=== PATIENT | male | born 1935 ===

== ENCOUNTER 2018-02-02 16:29 | Inpatient (IN) | payer MEDICARE ==
[~2018-02-02] VITALS: Ht 195.6 cm; Wt 88.0 kg
[~2018-02-02 16:29] MED LIST: DIAZ5 PO; ENAL10 PO; METO100 PO; METO50 PO; OMEP20ER PO; OXYACE5T PO; PANT40 PO; TRAZ50 PO; ZOLP10 PO
[2018-02-02 18:35] LABS: BASOPHILS ABSOLUTE AUTO 0.02 K/mm3 (0.00-0.23); BASOPHILS PERCENT AUTO 0 % (0-2); EOSINOPHILS ABSOLUTE AUTO 0.12 K/mm3 (0.00-0.68); EOSINOPHILS PERCENT AUTO 2 % (0-6); Hematocrit 40.1 % (37.0-53.0); Hemoglobin 13.5 g/dL (13.5-17.5); IMMATURE GRAN ABSOLUTE AUTO 0.02 K/mm3 (0.00-0.10); IMMATURE GRAN PERCENT AUTO 0 % (0-1); LYMPHOCYTES ABSOLUTE AUTO 1.24 K/mm3 (0.84-5.20); LYMPHOCYTES PERCENT AUTO 16 % (21-46); MONOCYTES ABSOLUTE AUTO 0.85 K/mm3 (0.16-1.47); MONOCYTES PERCENT AUTO 11 % (4-13); Mean Corpuscular HGB 34.2 pg (26.0-34.0); Mean Corpuscular HGB Conc 33.7 g/dL (31.5-36.5); Mean Corpuscular Volume 102 fL (80-100); Mean Platelet Volume 10.1 fL (9.1-12.4); NEUTROPHILS ABSOLUTE AUTO 5.47 K/mm3 (1.96-9.15); NEUTROPHILS PERCENT AUTO 71 % (41-73); Platelet Count 179 K/mm3 (150-400); RDW Coefficient Variation 11.4 % (11.7-14.2); RDW Standard Deviation 42.8 fL (35.1-46.3); Red Blood Cell Count 3.95 M/mm3 (4.30-5.90); White Blood Cell Count 7.72 K/mm3 (4.00-11.30)
[2018-02-02] MEDS ORDERED: LEVOCETIRIZINE D5 MG PO (18:37)
[2018-02-02] MEDS ORDERED: Lovastatin10 MG PO (18:38)
[2018-02-02] MEDS ORDERED: Citalopram HBr40 MG PO (18:38)
[2018-02-02] MEDS ORDERED: PANT40 PO (18:39)
[2018-02-02] MEDS ORDERED: LISI20 PO (18:39)
[2018-02-02] MEDS ORDERED: LORA1 PO (18:39)
[2018-02-02 18:52] LABS: International Normalized Ratio 0.97
[2018-02-02 18:53] LABS: Albumin/Globulin Ratio 1.1 (0.8-1.8); Bilirubin, Total 0.4 mg/dL (0.1-1.0); Bun/Creatinine Ratio 9.3 (12.0-20.0); Calcium, Blood 8.9 mg/dL (8.5-10.1); Creatinine, Blood 1.51 mg/dL (0.60-1.20); Globulin, Blood 3.5 g/dL (2.2-4.0); Potassium, Blood 4.6 mmol/L (3.5-5.5); Total Protein, Blood 7.5 g/dL (6.4-8.2)
[2018-02-03 05:48] LABS: Hematocrit 37.8 % (37.0-53.0); Hemoglobin 12.7 g/dL (13.5-17.5); Mean Corpuscular HGB 33.8 pg (26.0-34.0); Mean Corpuscular HGB Conc 33.6 g/dL (31.5-36.5); Mean Corpuscular Volume 101 fL (80-100); Mean Platelet Volume 10.4 fL (9.1-12.4); Platelet Count 170 K/mm3 (150-400); RDW Coefficient Variation 11.6 % (11.7-14.2); RDW Standard Deviation 42.5 fL (35.1-46.3); Red Blood Cell Count 3.76 M/mm3 (4.30-5.90); White Blood Cell Count 6.85 K/mm3 (4.00-11.30)
[2018-02-03 06:06] LABS: Bun/Creatinine Ratio 8.6 (12.0-20.0); Calcium, Blood 8.7 mg/dL (8.5-10.1); Creatinine, Blood 1.51 mg/dL (0.60-1.20); Potassium, Blood 4.1 mmol/L (3.5-5.5)
[2018-02-03] MEDS ORDERED: ACET325 PO (17:58)
[2018-02-03] MEDS ORDERED: CEPACOL SORE T1 EACH MM (17:58)
[2018-02-03] MEDS ORDERED: METO25 PO (17:59)
[2018-02-03] MEDS ORDERED: Norco 5-325 Ta1 EACH PO (18:00)
[2018-02-03] MEDS ORDERED: AMOX875 PO (18:02)
[2018-02-03] MEDS ORDERED: ONDA4ODT MM (18:03)
== END 2018-02-03 19:00 | disposition home or self-care (01) | DRG 581 ==
LOC: ER 16:29 → SURS 18:34
PROVIDERS: Family Medicine; Orthopaedic Surgery; Physician Assistant
PROC: 0JDJ0ZZ Extraction of Right Hand Subcutaneous Tissue and Fascia, Open Approach (ICD-10-PCS; 2018-02-03)
PROC: 0HDFXZZ Extraction of Right Hand Skin, External Approach (ICD-10-PCS; 2018-02-03)
PROC: 0X6S0Z3 Detachment at Right Ring Finger, Low, Open Approach (ICD-10-PCS; principal; 2018-02-03 12:30)
PROC: 0PDT0ZZ Extraction of Right Finger Phalanx, Open Approach (ICD-10-PCS; 2018-02-03 12:30)
DX: S61.214A Laceration without foreign body of right ring finger without damage to nail, initial encounter (principal); S61.212A Laceration without foreign body of right middle finger without damage to nail, initial encounter; K21.9 Gastro-esophageal reflux disease without esophagitis; E78.5 Hyperlipidemia, unspecified; H91.10 Presbycusis, unspecified ear; I12.9 Hypertensive chronic kidney disease with stage 1 through stage 4 chronic kidney disease, or unspecified chronic kidney disease; N18.3 Chronic kidney disease, stage 3 (moderate); Y92.009 Unspecified place in unspecified non-institutional (private) residence as the place of occurrence of the external cause; W29.8XXA Contact with other powered hand tools and household machinery, initial encounter; Y93.9 Activity, unspecified; Y99.8 Other external cause status
CPT/HCPCS: 12002; 36415; 71045; 73130; 80048; 80053; 85025; 85027; 85610; 86850; 86900; 86901; 90471; 90714; 93005; 93010; 96365; 96366; 99285-25; J0330; J0360; J0690; J1100; J1644; J2405; J3010; J7030; J7120

== ENCOUNTER 2020-11-19 13:50 | Observation (INO) | payer MEDICARE ==
[~2020-11-19] VITALS: Ht 188 cm; Wt 77.7 kg
[~2020-11-19 13:50] MED LIST changes: +ACET325 PO; +AMOX875 PO; +CEPACOL SORE T1 EACH MM; +Citalopram HBr40 MG PO; +LEVOCETIRIZINE D5 MG PO; +LISI20 PO; +LORA1 PO; +Lovastatin10 MG PO; +METO25 PO; +Norco 5-325 Ta1 EACH PO; +ONDA4ODT MM
[2020-11-19] MEDS ORDERED: RISP1 PO (14:24)
[2020-11-19] MEDS ORDERED: TAMS.4ER PO (14:24)
[2020-11-19] MEDS ORDERED: ANTIFUNGAL30 GM TOP (14:24)
[2020-11-19] MEDS ORDERED: Acerola C500 MG PO (14:25)
[2020-11-19] MEDS ORDERED: Diflucan100 MG PO (14:25)
[2020-11-19] MEDS ORDERED: Aspir 8181 MG PO (14:25)
[2020-11-19] MEDS ORDERED: Lovastatin20 MG PO (14:26)
[2020-11-19] MEDS ORDERED: Vitamin B-121000 MCG PO (14:26)
[2020-11-19 15:36] LABS: BASOPHILS ABSOLUTE AUTO 0.03 K/mm3 (0.00-0.23); BASOPHILS PERCENT AUTO 0 % (0-2); EOSINOPHILS PERCENT AUTO 1 % (0-6); Hematocrit 39.5 % (37.0-53.0); Hemoglobin 13.1 g/dL (13.5-17.5); IMMATURE GRAN ABSOLUTE AUTO 0.04 K/mm3 (0.00-0.10); IMMATURE GRAN PERCENT AUTO 0 % (0-1); LYMPHOCYTES PERCENT AUTO 12 % (21-46); MONOCYTES ABSOLUTE AUTO 1.33 K/mm3 (0.16-1.47); MONOCYTES PERCENT AUTO 15 % (4-13); Mean Corpuscular HGB 32.4 pg (26.0-34.0); Mean Corpuscular HGB Conc 33.2 g/dL (31.5-36.5); Mean Corpuscular Volume 98 fL (80-100); Mean Platelet Volume 10.2 fL (9.1-12.4); NEUTROPHILS ABSOLUTE AUTO 6.47 K/mm3 (1.96-9.15); NEUTROPHILS PERCENT AUTO 71 % (41-73); Platelet Count 265 K/mm3 (150-400); RDW Coefficient Variation 11.5 % (11.7-14.2); RDW Standard Deviation 41.8 fL (35.1-46.3); Red Blood Cell Count 4.04 M/mm3 (4.30-5.90); White Blood Cell Count 9.07 K/mm3 (4.00-11.30)
[2020-11-19 15:57] LABS: Albumin, Blood 3.3 g/dL (3.4-5.0); Albumin/Globulin Ratio 0.8 (0.8-1.8); Bilirubin, Total 0.6 mg/dL (0.1-1.0); Bun/Creatinine Ratio 24.6 (12.0-20.0); Calcium, Blood 9.9 mg/dL (8.5-10.1); Creatinine, Blood 1.83 mg/dL (0.60-1.20); Globulin, Blood 4.4 g/dL (2.2-4.0); Potassium, Blood 4.6 mmol/L (3.5-5.5); Total Protein, Blood 7.7 g/dL (6.4-8.2)
[2020-11-19 16:04] LABS: Thyroid Stimulating Hormone 1.17 uIU/mL (0.360-4.800)
[2020-11-19 16:10] LABS: Source, Urine Catheter
[2020-11-19 16:16] LABS: Appearance, Urine Clear (Clear); Bilirubin, Urine Neg (Neg); Blood, Urine 3+ (Neg); Color, Urine Yellow (P-Yellow); Glucose Qualitative, Urine Neg (Neg); Ketones, Urine 2+ (Neg); Leukocyte Esterase, Urine Neg (Neg); Nitrite, Urine Neg (Neg); Protein, Urine 2+ (Neg); Urobilinogen, Urine NORM (Normal)
[2020-11-19 16:25] LABS: Amorphous Light (0-Heavy); Bacteria Mod /hpf; Mucus Light (0-Heavy); Red Blood Cells, Urine 0-2 /hpf (0-2); Squamous Epithelial Cells Rare /hpf (Few); White Blood Cells, Urine 0-2 /hpf (0-5)
--- NOTE | 2020-11-20 04:20 | NUR ---
SHIFT SUMMARY PT ER ADMIT THIS SHIFT FOR INCREASED WEAKNESS. PT A/OX1 WITH PMH OF DEMENTIA AND PARKINSON'S. PT SPEAKS MINIMALLY WITH STAFF AND OCCASIONALLY JUST STARES WHEN ASKED A QUESTION AND OTHER TIMES HE WILL ANSWER AND COMMUNICATE. PT IS A/O TO SELF AND FAMILY ONLY, PT ASKED A FEW TIMES WHERE HIS WAS. PT HAS SLEPT MOST OF THE NIGHT AND HAS NOT ATTEMPTED TO GET OOB, BED ALARM IN PLACE FOR SAFETY. PT INCONTINENT OF URINE. PT ABLE TO MOVE HIS ARMS AND LEGS BUT IS VERY CONTROLLED IN HIS MOVEMENTS. PT TAKES HIS MEDS WHOLE IN APPLESAUCE AND TOLERATES WELL. ASPIRATION PRECAUTIONS MAINTAINED. NO COMPAINTS OF PAIN. IVF INFUSING ORDERED. VITALS ARE STABLE. BED IN LOWEST POSITION, CALL LIGHT WITHIN REACH.
--- NOTE | 2020-11-20 17:32 | NUR ---
SHIFT SUMMARY PT ADMITTED FOR INCREASED WEAKNESS AND AN INCREASE IN HIS PARKINSON'S SYMPTOMS. THE PT IS VERY CONFUSED AND ALER TO SELF AND FAMILY ONLY. HE TAKES HIS PILLS ONE AT A TIME IN APPLE SAUCE. HE IS INCONT. AND A MAX ASSIST TO GET UP. BED ALARM IS ON. IS PRIMARY CAREGIVER AND THEY ARE MOVING MORE TOWARDS COMFORT CARE AND HOME WITH HOSPICE. VSS. RESTING COMFORTABLY IN BED WITH HIS CALL LIGHT IN REACH.
[2020-11-21 05:14] LABS: Bun/Creatinine Ratio 21.5 (12.0-20.0); Calcium, Blood 8.8 mg/dL (8.5-10.1); Creatinine, Blood 1.35 mg/dL (0.60-1.20)
--- NOTE | 2020-11-21 16:41 | NUR ---
SHIFT SUMMARY: NO ACUTE EVENTS. ALERT TO SELF AND FAMILY, VERY MAKAH. EXTREMITIES RIGID AND TREMULOUS. TWO PERSON MAX ASSIST WITH GAIT BELT TO [facility] [place], IS VERY HEAVY. HAD FAMILY MEETING WITH PALLIATIVE CARE AND PROVIDER, WILL GO HOME ON HOSPICE, PROBABLY TOMORROW. APPETITE IS POOR, TAKING VERY LITTLE PO. WORKING WITH PT/OT.
--- NOTE | 2020-11-21 18:25 | NUR ---
Clarita Visits this Afternoon Family meeting this afternoon with this RN, Dr Reinoso, and many family members including spouse, grandchildren, brother, and other family members. Goals of care discussed including options for SNF, Home Health, and Hospice. Dr Reinoso answers questions and discusses prognoses. Spouse reports Pt has been showing significant decline over the last couple of months. Pt requires assistance with transfers, standbye assist with ambulation and FWW, bathing, dressing, and has been experiencing incontinence of urine. Spouse Beba reports Pt has lost 20 pounds in the last 3 months. Pt weighed 190 pounds 3 months ago and most recent PCP visit Pt weighs 170 pounds. Pt also is experiencing difficulty swallowing. Beba reports having to puree Pt's food now. Pt spends majority of his day in chair or bed. Beba also reports Pt has not had meaningful conversation in several months as well. This RN educated on hospice philosophy. After lengthy visit family has elected to pursue hospice. Hospice agencies discussed with family choosing [facility]. Spoke with Caremanager Jericho and relayed family's choice of hospice agencies. PPS 40% FAST 7C ADLs 5/6 Palliative Care will remain available.
--- NOTE | 2020-11-22 04:30 | NUR ---
Pleasantly confused dementia PT with advanced Parkinson's disease with DTR atbedside & supportive. PT is very thin and tall & reported to be up on day shift with 2 max unsafe to ambulate. PT with minimal oral intake needs feeding. Offered icecream & soft foods with meds. Aspiration precautions no cough with oral intake. Multiple swallows to clear. Planning to DC home on Hospice as soon as arranged. Medicated for anxiety at HS with ativan 0.5 mg with helpful effect. Fall precautions poor safety awareness.
--- NOTE | 2020-11-22 13:28 | NUR ---
PT DISCHARGE TO HOME WITH HOSPICE. IV DC'D. GIVEN PACKET AND INSTRUCTIONS. WAS ALSO GIVEN THE DISCHARGE PAPER AND INSTRUCTED TO FOLLOW UP TO THE PT PCP WITHIN 72 HRS. TRIED TO CALL THE DR FOR FU APPOINMENT BUT THEY WILL CALL THE PT BACK FOR APPOINTMENT. DENIES ANY CONCERNS/
== END 2020-11-22 13:15 | disposition hospice, home (50) ==
LOC: ER 13:50 → ERHOLD 13:51 → MEDS 13:51
PROVIDERS: Emergency Medicine; Internal Medicine; ADMIT Internal Medicine
DX: G20 Parkinson's disease (principal); F02.80 Dementia in other diseases classified elsewhere, unspecified severity, without behavioral disturbance, psychotic disturbance, mood disturbance, and anxiety; N17.9 Acute kidney failure, unspecified; E86.0 Dehydration; E87.1 Hypo-osmolality and hyponatremia; I12.9 Hypertensive chronic kidney disease with stage 1 through stage 4 chronic kidney disease, or unspecified chronic kidney disease; N18.30 Chronic kidney disease, stage 3 unspecified; K21.9 Gastro-esophageal reflux disease without esophagitis; E78.5 Hyperlipidemia, unspecified; H91.10 Presbycusis, unspecified ear
CPT/HCPCS: 36415; 70450; 71045; 74176; 80048; 80053; 81001; 82607; 83690; 84443; 85025; 87086; 93005; 93010; 96372; 97110; 97110-CQ; 97162; 97530; 99285-25; A9270; G0378; J1650; J7030